=== PATIENT | female | born 1955 | race Two or more races ===

== ENCOUNTER 2020-09-21 08:05 | Day surgery (SDC) | payer OTHER | END 2020-09-21 14:30 | disposition home or self-care (01) | LOC: AMB-ENDOS 08:05 | PROVIDERS: ATTEND Colon & Rectal Surgery | DX: D13.1 Benign neoplasm of stomach (principal); K62.89 Other specified diseases of anus and rectum; K64.0 First degree hemorrhoids; K44.9 Diaphragmatic hernia without obstruction or gangrene; Z20.822 Contact with and (suspected) exposure to COVID-19 ==